=== PATIENT | male | born 1985 | race Caucasian/White ===

== ENCOUNTER 2017-03-04 11:41 | Emergency (ER) | payer OTHER ==
[2017-03-04 11:58] VITALS: BP 149/97; PULSE 82; RESP 18; TEMP 98.3
--- NOTE | 2017-03-04 12:38 | ED ---
General Adult HPI - General Chief complaint: Extremity Injury, Upper Stated complaint: RT CHEST AND BACK PAIN FROM FALL Time Seen by Provider: 03/04/17 12:21 Source: patient, RN notes reviewed Mode of arrival: ambulatory Limitations: no limitations - History of Present Illness Initial comments: Patient's a 31-year-old male who presents emergency room today with a chief complaint of an injury to the right shoulder that occurred 2 days ago when falling. He states he slipped going down the right shoulder. Patient states that he's been expressing pain to the posterior aspect of the right shoulder is worse with certain movements. He does admit that he is right-handed. He denies any head injury or loss conscious at the time. Patient denies any recent fever, chills, shortness of breath, chest pain, back pain, abdominal pain, nausea or vomiting, numbness or tingling, headaches or visual changes, or any other complaints. - Related Data Previous Rx's Medication Instructions Recorded Ibuprofen [Motrin] 600 mg PO Q6HR PRN #40 day 03/04/17 Allergies Allergy/AdvReac Type Severity Reaction Status Date / Time Penicillins Allergy Unknown Verified 03/04/17 11:58 Childhood Review of Systems ROS Statement: Those systems with pertinent positive or pertinent negative responses have been documented in the HPI. ROS Other: All systems not noted in ROS Statement are negative. Past Medical History Past Medical History: No Reported History History of Any Multi-Drug Resistant Organisms: None Reported Past Surgical History: Orthopedic Surgery Additional Past Surgical History / Comment(s): left foot surgery Past Psychological History: No Psychological Hx Reported Smoking Status: Current every day smoker Past Alcohol Use History: Occasional Past Drug Use History: None Reported General Exam - General Exam Comments Initial Comments: General: The patient is awake and alert, in no distress, and does not appear acutely ill. Neck: The neck is supple, there is no tenderness or JVD. Cardiovascular: There is a regular rate and rhythm. No murmur, rub or gallop is appreciated. Respiratory: Lungs are clear to auscultation, respirations are non-labored, breath sounds are equal. No wheezes, stridor, rales, or rhonchi. Musculoskeletal: Patient does have normal appearance the right shoulder. He shows good range of motion all directions. Strength is 5/5. Sensations are intact pulses equal bilateral 2+. Patient does have tenderness to the posterior aspect on palpation of the right shoulder. No bony tenderness to the cervical or thoracic spine. No tenderness on the right elbow or right wrist. Neurological: A&O x 3. CN II-XII intact, There are no obvious motor or sensory deficits. Coordination appears grossly intact. Speech is normal. Skin: Skin is warm and dry and no rashes or lesions are noted. Psychiatric: Normal mood and affect. Limitations: no limitations Course Vital Signs 03/04/17 11:55 Temperature 98.3 F Pulse Rate 82 Respiratory 18 Rate Blood Pressure 149/97 O2 Sat by Pulse 99 Oximetry Medical Decision Making - Medical Decision Making Negative for any acute fracture dislocation. There is some desiccation over the AC joint. Patient has no tenderness in this area. Patient's tender posteriorly. Patient is advised to continue to ice and rest the area use ibuprofen for pain. Advised follow-up orthopedics for further evaluation. Disposition Clinical Impression: Shoulder injury Disposition: HOME SELF-CARE Condition: Good Instructions: Shoulder Sprain (ED) Additional Instructions: Please use medication as discussed. Please follow-up with orthopedic/family doctor in the next 2 days of symptoms have not improved. Please return to emergency room if the symptoms increase or worsen or for any other concerns. Prescriptions: Ibuprofen [Motrin] 600 mg PO Q6HR PRN #40 day PRN Reason: Pain Referrals: None,Stated [Primary Care Provider] - 1-2 days Sotero Ayoub DO [Doctor of Osteopathic Medicine] - 1-2 days Time of Disposition: 12:58
--- NOTE | 2017-03-04 12:39 | XR ---
EXAMINATION TYPE: XR shoulder complete RT DATE OF EXAM: 03/04/2017 COMPARISON: NONE HISTORY: 31 year-old male right shoulder pain since slip and fall 3 days ago TECHNIQUE: 3 views FINDINGS: Possible mild capsular swelling at the AC joint on the scapular Y view. Otherwise, no acute fracture, subluxation, or dislocation seen. Visualized right hemithorax is clear. IMPRESSION: Possible mild capsular swelling at the AC joint. Correlate for any point tenderness to assess for a p ossible mild joint sprain. Otherwise, no acute osseous abnormality seen.
== END 2017-03-04 13:10 | disposition home or self-care (01) ==
LOC: EC 11:41
DX: S49.91XA Unspecified injury of right shoulder and upper arm, initial encounter (principal); F17.200 Nicotine dependence, unspecified, uncomplicated; Z88.0 Allergy status to penicillin; W01.0XXA Fall on same level from slipping, tripping and stumbling without subsequent striking against object, initial encounter; Y93.89 Activity, other specified
CPT/HCPCS: 99283